=== PATIENT | female | born 1965 | race Asian ===

== ENCOUNTER 2024-09-15 15:18 | Emergency (ER) | payer OTHER, SELFPAY ==
[2024-09-15] VITALS (9 sets, daily range): BP systolic 112–134; BP diastolic 78–87; BMI 24.2
[2024-09-15 16:04] LABS: % Basophils 0.7 % (0-2); % Eosinophils 1.3 % (0-6); % Immature Granulocytes 0.2 % (0-0.5); % Lymphocytes 33.6 % (20.5-51.1); % Monocytes 15.7 % (1.7-9.3); % Neutrophils 48.5 % (42.2-75.2); Absolute Eosinophils 0.1 10^3/uL (0-0.7); Absolute Lymphocytes 1.5 10^3/uL (1.2-3.4); Absolute Monocytes 0.7 10^3/uL (0.1-0.6); Absolute Neutrophils 2.2 10^3/uL (1.4-6.5); Hematocrit 41.9 % (37.0-47.0); Mean Corp Hgb Conc. 33.4 g/dL (33.0-37.0); Mean Corpuscular Hgb 31.3 pg (27.0-31.0); Mean Corpuscular Volume 93.7 fL (81.0-99.0); Nucleated Red Blood Cells % 0 %; Platelet Count 150 10^3/uL (130-400); Red Blood Cell Count 4.47 10^6/uL (4.20-5.40); Red Cell Dist. Width 13.2 % (11.5-14.5); White Blood Cell Count 4.5 10^3/uL (4.8-10.8)
[2024-09-15 16:15] LABS: ALT (SGPT) 42 U/L (0-35); AST (SGOT) 42 U/L (14-36); Albumin 3.7 g/dl (3.5-5.0); Alkaline Phosphatase 67 U/L (38-126); Blood Urea Nitrogen 15 mg/dl (7-17); Calcium 8.9 mg/dl (8.4-10.2); Carbon Dioxide 29 mmol/L (22-30); Chloride 106 mmol/L (98-107); Glucose 109 mg/dl (70-99); Potassium 3.7 mmol/L (3.5-5.1); Sodium 141 mmol/L (135-145); Total Bilirubin 0.5 mg/dl (0.2-1.3); Total Protein 6.2 g/dl (6.3-8.2); eGFR > 60.00
[2024-09-15 16:26] LABS: Troponin I < 0.012 ng/ml
[2024-09-15 20:14] LABS: Troponin I < 0.012 ng/ml
--- NOTE | 2024-09-15 20:53 | ED.GENMED ---
History of Present Illness
General
Chief Complaint: Chest Pain
Source: patient
Exam Limitations: none
Time Seen by Provider: 09/15/24 17:48
History of Present Illness
History of Present Illness:
Patient to ED with complaint of left sided chest pain. Pain started suddenly while talking on the phone at work. Pain does not radiate. No SOB, cough, n/v/diaphoresis. No prior history of same. Brought to eD by spouse for eval. Pain resolved
prior to ED admission
Past History
Past History
ED Past Medical History: Asthma, GERD and Hypercholesterolemia
ED Past Surgical History: Orthopedic (right wrist surgery)
Social History
Tobacco: Non-smoker
Alcohol: None
Personal:
Living: alone
Family History
Family History: Other (reviewed and noncontributory)
Review of Systems
Review of Systems
Allergies reviewed?: Yes
All Other Systems: ROS reviewed and negative except as documented in HPI and ROS
Constitutional: Reports no symptoms
EENT: Reports no symptoms
Respiratory: Reports no symptoms
Cardiac: Reports chest pain
ABD/GI: Reports no symptoms
: Reports no symptoms
Musculoskeletal: Reports no symptoms
Skin: Reports no symptoms
Neurological: Reports no symptoms
Psychiatric: Reports no symptoms
Phy Exam
General Physical Exam
General Presentation: well appearing and no apparent distress
General age: appears stated age
General Skin: warm and dry
General Habitus: normal
Cardiovascular Exam
Cardiovascular Exam: regular rate/rhythm and no edema
Pulmonary Exam
Pulmonary Exam: lungs clear and no respiratory distress
Gastrointestinal Exam
Gastrointestinal Exam: non tender and soft
Musculoskeletal Exam
Musculoskeletal Exam: full ROM and neuro vasc intact
Skin Exam
Skin Exam: normal color, warm/dry and no rash
Psychiatric Exam
Psychiatric Exam: normal mood/affect
Scores
Heart Score for Chest Pain Patients
STEMI patient?: No
History: Slightly or Non-Suspicious
ECG: Normal
Age: >45 - <65 years
Risk Factors: No Risk Factors
Troponin: </= Normal Limit
Heart Score for Chest Pain Patients: 1
Heart Score Risk: 2.5% MACE over next 6 weeks
Course
Orders/Labs/Results
Orders:
Orders
09/15/24 15:19
Electrocardiogram (*1) Urgent
Reason for Study: Chest Pain
EKG- Treatment ONCE
09/15/24 15:43
Complete Blood Count/With Diff Urgent
Comprehensive Metabolic Panel Urgent
Troponin I Urgent
09/15/24 18:17
CR Chest - 2 Views Urgent
Comment:
Reason For Exam: tightness
09/15/24 19:40
Troponin I Urgent
Influenza A+B Rapid Molecular Urgent
MIKE Source: Nasal Swab
Specimen Description:
09/15/24 20:51
Pantoprazole [Protonix] 40 mg PO NOW STA
Abnormal Lab Results
09/15/24
15:43
WBC 4.5 L 10^3/uL
(4.8-10.8)
MCH 31.3 H pg
(27.0-31.0)
MPV 11.0 H fL
(7.4-10.4)
Absolute Monos (auto) 0.7 H 10^3/uL
(0.1-0.6)
Monocytes % 15.7 H %
(1.7-9.3)
Glucose 109 H mg/dl
(70-99)
AST 42 H U/L
(14-36)
ALT 42 H U/L
(0-35)
Total Protein 6.2 L g/dl
(6.3-8.2)
09/15/24 15:43
09/15/24 15:43
Vital Signs
Initial and Last Documented VS:
Initial Vital Signs
Temp Pulse Resp BP Pulse Ox
98.2 F 89 16 120/80 98
09/15/24 15:30 09/15/24 15:30 09/15/24 15:30 09/15/24 15:30 09/15/24 15:30
Last Documented Vital Signs
Temp Pulse Resp BP Pulse Ox
98.2 F 74 16 128/83 96
09/15/24 15:30 09/15/24 19:29 09/15/24 19:29 09/15/24 19:29 09/15/24 19:29
*Critical Care Note
Total Time (30-74mins, 75-104mins- exclusive of procedures): Not Applicable
Update Note
Update Note:
Patient to ED for left chest pain. Descibed as sharp, nonradiating. No associated symptoms. Resolved prior to evaluation. SHe has remained pain free. Labs reviewed. EKD NSR, troponin neg x 2. She feels pain may be reflex related. Will trial
protonix. WIll discharge home, close follow up with PCP. Given instructions on s/s to return to ED and she is agreeable to plan.
ED Attending Note
-
Portions of this chart may have been created with voice recognition software.� Occasional wrong word or��sound alike� substitutions may have occurred due to the inherent limitations of voice recognition software.
Discharge Plan
Departure
Patient Disposition: Home (Routine Discharge)
Date of Disposition: 09/15/24
Time of Disposition: 20:51
Patient with high blood pressure during this ER visit?: No
Condition: Good
Covid-19: Not Applicable
Discharge Problem:
Chest pain
Instructions: Chest Pain PCP Follow Up
Prescriptions:
New
pantoprazole [Protonix] 40 mg tablet,delayed release (DR/EC)
40 mg PO DAILY Qty: 14 0RF
No Action
hydrocodone-acetaminophen [Vicodin] 1 EACH tablet
1 - 2 tab PO Q6HPRN PRN (Reason: severe pain) Qty: 12 0RF
escitalopram oxalate [Lexapro] 10 mg tablet
10 mg PO DAILY Qty: 30 2RF
amoxicillin-pot clavulanate 875-125 mg tablet
1 tab PO Q12H Qty: 14 0RF
Referrals:
NONE,* [Family Provider] -
Activity Restrictions/Additional Instructions:
Follow up with your family doctor.
Interventions
Interventions:
*Risk Screen - Suicide Last Done: 09/15/24 15:30
*General Assessment Last Done: 09/15/24 19:24
*Neglect/Abuse Screening Last Done: 09/15/24 15:30
*ED- Fall Risk Assessment Last Done: 09/15/24 19:24
*ED COVID-19 Vaccine History Last Done: 09/15/24 19:24
ED- Cardiac Assessment Last Done: 09/15/24 19:24
Discharge Date and Time
Print Language: NEPALI
[2024-09-15] MEDS: PROTONIX 40 MG PO (21:09)
== END 2024-09-15 21:17 | disposition home or self-care (01) ==
LOC: EMR 15:18
PROVIDERS: Emergency Medicine; Nurse Practitioner; EMERGENCY PHYSICIAN Student in an Organized Health Care Education/Training Program
DX: R07.89 Other chest pain (principal); J45.909 Unspecified asthma, uncomplicated; K21.9 Gastro-esophageal reflux disease without esophagitis; E78.00 Pure hypercholesterolemia, unspecified; Z01.810 Encounter for preprocedural cardiovascular examination; Z98.890 Other specified postprocedural states
CPT/HCPCS: 99283; 71046; 80053; 84484; 85025; 87502; 93005

== ENCOUNTER → 2024-10-07 10:21 | Outpatient (REF) | payer OTHER, SELFPAY | LOC: RAD 10:21 | PROVIDERS: ATTENDING PHYSICIAN Family Medicine | DX: K21.9 Gastro-esophageal reflux disease without esophagitis (principal); R07.89 Other chest pain | CPT/HCPCS: 76700 ==

== ENCOUNTER → 2024-11-15 17:57 | Outpatient (REF) | payer OTHER, SELFPAY | LOC: WDC 17:57 | PROVIDERS: ATTENDING PHYSICIAN Family Medicine | DX: Z12.31 Encounter for screening mammogram for malignant neoplasm of breast (principal) | CPT/HCPCS: 77063; 77067 ==

== ENCOUNTER → 2024-12-30 15:17 | Outpatient (REF) | payer OTHER, SELFPAY | LOC: RCS 15:17 | PROVIDERS: ATTENDING PHYSICIAN Internal Medicine; FAMILY PHYSICIAN Family Medicine | DX: R07.9 Chest pain, unspecified (principal); E78.01 Familial hypercholesterolemia; R06.02 Shortness of breath; R42 Dizziness and giddiness; R00.2 Palpitations | CPT/HCPCS: 93017 ==

== ENCOUNTER → 2025-01-10 13:47 | Outpatient (REF) | payer OTHER, SELFPAY | LOC: RCS 13:47 | PROVIDERS: ATTENDING PHYSICIAN Internal Medicine; FAMILY PHYSICIAN Family Medicine | DX: R07.9 Chest pain, unspecified (principal); R06.02 Shortness of breath; R42 Dizziness and giddiness; R00.2 Palpitations; E78.01 Familial hypercholesterolemia | CPT/HCPCS: 93306 ==

== ENCOUNTER → 2025-05-04 08:12 | Outpatient (REF) | payer OTHER, SELFPAY | LOC: RAD 08:12 | PROVIDERS: ATTENDING PHYSICIAN Obstetrics & Gynecology Gynecology; FAMILY PHYSICIAN Family Medicine | DX: Z78.0 Asymptomatic menopausal state (principal) | CPT/HCPCS: 77080 ==